=== PATIENT | male | born 1995 | race Two or more races ===

== ENCOUNTER 2021-06-14 14:34 | Emergency (ER) | payer SELFPAY ==
[~2021-06-14] VITALS: Ht 190.5 cm; Wt 83.9 kg
[2021-06-14] MEDS ORDERED: METOCLOPRAMIDE HCL 5MG/ml INJ 2ml VIAL IV ONE (15:30)
[2021-06-14] MEDS ORDERED: SODIUM CHLORIDE 0.9% 1,000 ML IV ONE (15:30)
[2021-06-14] MEDS ORDERED: HYDROmorphone HCL 2 MG/ML VL IV ONE (15:30)
[2021-06-14 16:14] LABS: Basophils # (auto) 0 10 ^3/uL (0-0.2); Basophils % (auto) 0.3 % (0.0-2.0); Eosinophils # (auto) 0 10 ^3/uL (0-0.8); Hematocrit 52.4 % (41.0-53.0); Hemoglobin 17.5 g/dL (13.5-17.5); Lymphocytes # (auto) 1.1 10 ^3/uL (0.4-5.4); Lymphocytes % (auto) 8.6 % (10.0-50.0); Mean Corpuscular Hgb Conc. 33.4 g/dL (32.0-36.0); Mean Corpuscular Volume 92.8 fL (80.0-100.0); Monocytes # (auto) 0.8 10 ^3/uL (0-1.3); Monocytes % (auto) 6.1 % (0.0-12.0); Neutrophils # (auto) 10.7 10 ^3/uL (1.6-8.6); Red Blood Cells 5.64 10^6/uL (4.5-5.90); Red Cell Distribution Width 13.7 % (11.8-14.3); White Blood Cell 12.6 10^3/uL (4.4-10.8)
[2021-06-14 16:31] LABS: Albumin 4.5 g/dL (3.4-5.0); BUN/Creatinine Ratio 8.9; Calcium 9.4 mg/dL (8.5-10.1); Magnesium 2.3 mg/dL (1.6-2.6); Potassium 3.8 mmol/L (3.5-5.1)
[2021-06-14 16:33] LABS: Bilirubin, Total 0.9 mg/dL (0.2-1.0); Total Protein 8.3 g/dL (6.4-8.2)
[2021-06-14 18:00] VITALS: BP 104/84
== END 2021-06-14 18:37 | disposition home or self-care (01) ==
LOC: ER 14:36
DX: S42.491A Other displaced fracture of lower end of right humerus, initial encounter for closed fracture (principal); R07.89 Other chest pain; W21.03XA Struck by baseball, initial encounter; Y93.64 Activity, baseball; Y99.8 Other external cause status; Y92.89 Other specified places as the place of occurrence of the external cause
CPT/HCPCS: 29105; 36415; 71046; 73060; 73080; 80053; 83735; 85025; 93005; 96361; 96374; 96375; 99285; J1170; J2765; J7030